=== PATIENT | male | born 1965 | race Hispanic/Latino ===

== ENCOUNTER 2017-03-12 16:01 | Emergency (ER) | payer MEDICAID ==
--- NOTE | 2017-03-12 16:14 | ED PDOC ---
HPI: Psych/Substance Abuse Time Seen by Provider: 03/12/17 16:13 Chief Complaint (Nursing): Psychiatric Evaluation Chief Complaint (Provider): etoh, crisis eval History Per: Patient, EMS Additional Complaint(s): 51 year old male presents to ED for crisis eval. Patient admits to having some domestic issues at home. He states he called ambulance today as he feels suicidal but does not have a plan. Patient also admits to drinking "A lot of alcohol today" but he denies any drug use. Patient offers no acute medical complaints. Past Medical History Reviewed: Historical Data, Nursing Documentation, Vital Signs Vital Signs: Last Vital Signs Temp 97.7 F 03/12/17 16:05 Pulse 93 H 03/12/17 16:05 Resp 20 03/12/17 16:05 BP 138/90 03/12/17 16:05 Pulse Ox 99 03/12/17 16:05 - Medical History PMH: Crohn's Disease Other PMH: "Adrenal problem" - Surgical History Surgical History: Appendectomy - Family History Family History: States: No Known Family Hx - Living Arrangements Living Arrangements: With Family - Social History Current smoker - smoking cessation education provided: Yes Alcohol: Social Drugs: Denies - Allergies Allergies/Adverse Reactions: Allergies Allergy/AdvReac Type Severity Reaction Status Date / Time No Known Allergies Allergy Verified 03/12/17 16:04 Review of Systems ROS Statement: Except As Marked, All Systems Reviewed And Found Negative Psych: Positive for: Suicidal ideation, Other (etoh) Physical Exam - Reviewed Nursing Documentation Reviewed: Yes Vital Signs Reviewed: Yes - Physical Exam Appears: Positive for: Well, Non-toxic, No Acute Distress Skin: Negative for: Rash Eye Exam: Positive for: Normal appearance Cardiovascular/Chest: Positive for: Regular Rate, Rhythm Respiratory: Positive for: Normal Breath Sounds Extremity: Positive for: Normal ROM Neurologic/Psych: Positive for: Alert, Other (intoxicated, answers some questions appropriately) - Laboratory Results Result Diagrams: 03/12/17 17:30 03/12/17 18:48 - ECG O2 Sat by Pulse Oximetry: 99 Pulse Ox Interpretation: Normal Medical Decision Making Medical Decision Makin51 year old intoxicated male with suicidal ideation Plan: 1:1 bedside observation Crisis consult CBC CMP BAL UDS UA BAL is 374 Upon review of patient's belongings, RN and internet technology manager noted several white powdered substances in various containers. Patient states they are medications that he snorts for an "adrenal disorder." He does not know the names of the meds. Police report filed and police came to ED. Disposition - Clinical Impression Clinical Impression: Alcohol intoxication, Suicidal ideation - Patient ED Disposition Is Patient to be Admitted: Transfer of Care - Disposition Disposition: Transfer of Care Disposition Time: 20:00 Condition: FAIR Forms: [employer] ([place]) Patient Signed Over To: Fili Morgan Handoff Comments: Case was signed out pending sobriety, crisis eval and final disposition
[2017-03-12 17:39] LABS: BASO # 0.1 K/uL (0.0-0.2); EOS # 0.1 K/uL (0.0-0.7); EOS % 1.1 % (0.0-4.0); HEMATOCRIT 39.3 % (35.0-51.0); LYMPH # 1.9 K/uL (1.0-4.3); LYMPH % 29.8 % (20.0-40.0); MEAN CELL VOLUME 88.7 fl (80.0-94.0); MEAN CORPUSCULAR HEMOGLOBIN 28.3 pg (27.0-31.0); MEAN CORPUSCULAR HGB CONC 31.9 g/dL (33.0-37.0); MEAN PLATELET VOLUME 6.5 fl (7.2-11.7); MONO # 0.5 K/uL (0.0-0.8); MONO % 7.1 % (0.0-10.0); NEUT # 3.9 K/uL (1.8-7.0); RED CELL DISTRIBUTION WIDTH 18.5 % (11.5-14.5); WHITE BLOOD COUNT 6.5 K/uL (4.8-10.8)
[2017-03-12 19:16] LABS: ALB/GLOB RATIO 1.5 (1.0-2.1); ALKALINE PHOSPHATASE 57 U/L (38-126); ALT/SGPT 52 U/L (21-72); AST/SGOT 65 U/L (17-59); BILIRUBIN,TOTAL 0.3 mg/dl (0.2-1.3); BLOOD UREA NITROGEN 11 mg/dl (9-20); CALCIUM 8.5 mg/dL (8.4-10.2); CARBON DIOXIDE 22 mmol/L (22-30); CHLORIDE 107 mmol/L (98-107); GFR AFRICAN-AMERICAN > 60; GLUCOSE,RANDOM 82 mg/dL (75-110); POTASSIUM 3.9 MMOL/L (3.6-5.0); SODIUM 146 mmol/l (132-148); TOTAL PROTEIN 7.3 G/DL (6.3-8.2)
[2017-03-12 19:23] LABS: RBC URINE 2 /hpf (0-3); URINE BILIRUBIN NEGATIVE (NEGATIVE); URINE BLOOD NEGATIVE (NEGATIVE); URINE COLOR YELLOW (YELLOW); URINE GLUCOSE (UA) NEG (Normal); URINE KETONE 20 mg/dL (NEGATIVE); URINE LEUKOCYTE ESTERASE NEG Leu/uL (Negative); URINE PROTEIN 100 mg/dL (NEGATIVE); URINE UROBILINOGEN 0.2-1.0 mg/dL (0.2-1.0); WBC URINE < 1 /hpf (0-5)
[2017-03-13] MEDS ORDERED: Alum-Mag Hydrox-Simethicone Susp (30 mL) PO ONE (00:16)
--- NOTE | 2017-03-13 02:47 | ED PDOC ---
- Laboratory Results Result Diagrams: 03/12/17 17:30 03/12/17 18:48 - ECG O2 Sat by Pulse Oximetry: 98 - Progress ED Course And Treament: SEEN BY CRISIS CLEARED FOR DISCHARGE DIAGNOSIS ALCOHOL INDUCED MOOD DISORDER Disposition - Clinical Impression Clinical Impression: Alcohol intoxication, Suicidal ideation, Alcohol-induced mood disorder - POA Present On Arrival: None - Disposition Disposition: Routine/Home Disposition Time: 02:46 Condition: FAIR Additional Instructions: PATIENT IS MEDICALLY AND PSYCHIATRICALLY CLEARED FOR INCARCERATION. Instructions: Mood Disorders (ED) Forms: [employer] ([place])
[2017-03-13 03:13] VITALS: BP 148/85; PULSE 98; RESP 18; TEMP 98.2; O2SAT 99
== END 2017-03-13 03:38 ==
LOC: H.ER 16:01
DX: F10.129 Alcohol abuse with intoxication, unspecified (principal); E27.9 Disorder of adrenal gland, unspecified; F17.200 Nicotine dependence, unspecified, uncomplicated; K50.90 Crohn's disease, unspecified, without complications; R45.851 Suicidal ideations

== ENCOUNTER 2017-04-28 05:08 | Emergency (ER) | payer MEDICAID ==
[2017-04-28] MEDS ORDERED: Albuterol-Ipratrop 3 mg / 0.5 (3 ml) UD INH STA (05:40)
[2017-04-28] MEDS ORDERED: Promethazine/Cod 6.25mg-10mg/5ml Syr UD PO STA (05:42)
[2017-04-28] MEDS ORDERED: Sodium Chloride 0.9% 1,000 ML IV STA (05:42)
--- NOTE | 2017-04-28 05:58 | ED PDOC ---
HPI: CCC, URI, Sore Throat Time Seen by Provider: 04/28/17 05:22 Chief Complaint (Nursing): Cough, Cold, Congestion Chief Complaint (Provider): Cough and Vomiting History Per: Patient History/Exam Limitations: no limitations Onset/Duration Of Symptoms: Days (1 week but got worse 5 hours ago) Current Symptoms Are (Timing): Still Present Additional Complaint(s): 51 y/o male with a history of Crohn's Disease presents to the ED complaining of coughing and vomiting, onset of 7 days. Patient reports that about a week ago he was admitted to a hospital in [place], where they tested for pneumonia and blood clots. His results came back negative for both, and he was discharged with a diagnosis of bronchitis 2 days ago. His symptoms of coughing and vomiting episodes arose again, and worsened shortly after being discharged prompting this visit to the ED. Patient reports of very little blood after coughing, chills, sweating, but denies any abdominal pain or diarrhea. Of note, patient is not currently on any type of medication. Past Medical History Reviewed: Historical Data, Nursing Documentation, Vital Signs Vital Signs: Last Vital Signs Temp 98.6 F 04/28/17 05:15 Pulse 120 H 04/28/17 05:15 Resp 19 04/28/17 05:15 BP 173/117 H 04/28/17 05:15 Pulse Ox 97 04/28/17 06:09 - Medical History PMH: Crohn's Disease Denies: Diabetes, Hepatitis, HIV, HTN, Seizures, Sexually Transmitted Disease - Surgical History Surgical History: Appendectomy, Cholecystectomy - Family History Family History: States: Unknown Family Hx - Social History Current smoker - smoking cessation education provided: Yes Alcohol: Social Drugs: Denies - Home Medications Home Medications: Ambulatory Orders Medication Instructions Recorded Famotidine [Pepcid AC] 10 mg PO PRN PRN 03/12/17 Galantamine [remINYL] 4 mg PO BID 03/12/17 Loperamide [Imodium] 2 mg PO PRN PRN 03/12/17 Memantine [Namenda] 10 mg PO BID 03/12/17 Albuterol HFA [Ventolin HFA 90 2 puff IH Q4 PRN #1 inh 04/28/17 mcg/actuation (8 g)] Azithromycin [Z-Bubba] 250 mg PO ASDIR #6 tab 04/28/17 Promethazine/Codeine 5 ml PO Q6 PRN #100 ml 04/28/17 [Phenergan/Codeine Oral Syrup] - Allergies Allergies/Adverse Reactions: Allergies Allergy/AdvReac Type Severity Reaction Status Date / Time morphine Allergy ITCHING Verified 04/28/17 05:21 Review of Systems ROS Statement: Except As Marked, All Systems Reviewed And Found Negative Constitutional: Positive for: Chills, Sweats Cardiovascular: Negative for: Chest Pain Respiratory: Positive for: Cough. Negative for: Shortness of Breath Gastrointestinal: Positive for: Vomiting. Negative for: Abdominal Pain, Diarrhea Physical Exam - Reviewed Nursing Documentation Reviewed: Yes Vital Signs Reviewed: Yes - Physical Exam Appears: Positive for: Non-toxic, No Acute Distress, Uncomfortable Head Exam: Positive for: ATRAUMATIC, NORMOCEPHALIC Skin: Positive for: Normal Color, Warm Eye Exam: Positive for: Normal appearance, EOMI, PERRL ENT: Positive for: Normal ENT Inspection Neck: Positive for: Normal, Painless ROM, Supple Cardiovascular/Chest: Positive for: Tachycardia Respiratory: Positive for: Normal Breath Sounds. Negative for: Respiratory Distress Gastrointestinal/Abdominal: Positive for: Normal Exam, Soft. Negative for: Tenderness Back: Positive for: Normal Inspection Extremity: Positive for: Normal ROM. Negative for: Pedal Edema, Deformity Neurologic/Psych: Positive for: Alert, Oriented. Negative for: Motor/Sensory Deficits - Laboratory Results Result Diagrams: 04/28/17 06:12 04/28/17 06:12 - ECG O2 Sat by Pulse Oximetry: 97 (RA) Pulse Ox Interpretation: Normal Medical Decision Making Medical Decision Making: Time: --05:40 Impression: --Cough and Vomiting Differential: --Acute Bronchitis vs. Pneumonia vs. ETOH Withdrawal Plan: --VBG Shock Panel --Alcohol Serum --Labs --Chest X-ray --Albuterol 3ml INH --IV Fluids --Zofran 4mg IV --Promethazine/Codeine 5ml PO --Blood Culture --IV Insertion Reassess -- Scribe Attestation: Documented by Savage Ramirez acting as a scribe for Pradeep Gould MD Disposition - Clinical Impression Clinical Impression: Acute bronchitis - Patient ED Disposition Is Patient to be Admitted: No Doctor Will See Patient In The: Office Counseled Patient/Family Regarding: Studies Performed, Diagnosis, Need For Followup - Disposition Referrals: [facility] [Outside] Disposition: Routine/Home Disposition Time: 06:59 Condition: GOOD Additional Instructions: Take your medications as instructed. Follow up with your PCP in 2-3 days. Return for worsening. Prescriptions: Albuterol HFA [Ventolin HFA 90 mcg/actuation (8 g)] 2 puff IH Q4 PRN #1 inh PRN Reason: Cough Azithromycin [Z-Bubba] 250 mg PO ASDIR #6 tab Promethazine/Codeine [Phenergan/Codeine Oral Syrup] 5 ml PO Q6 PRN #100 ml PRN Reason: Cough Instructions: Acute Bronchitis (ED)
[2017-04-28 06:14] LABS: BASO # 0.1 K/uL (0.0-0.2); BASO % 0.8 % (0.0-2.0); EOS # 0.1 K/uL (0.0-0.7); EOS % 0.7 % (0.0-4.0); HEMOGLOBIN 10.9 g/dL (12.0-18.0); LYMPH # 2.4 K/uL (1.0-4.3); LYMPH % 17.9 % (20.0-40.0); MEAN CORPUSCULAR HEMOGLOBIN 27.9 pg (27.0-31.0); MEAN CORPUSCULAR HGB CONC 32.9 g/dL (33.0-37.0); MEAN PLATELET VOLUME 7.2 fl (7.2-11.7); MONO # 1.4 K/uL (0.0-0.8); MONO % 10.6 % (0.0-10.0); NEUT # 9.2 K/uL (1.8-7.0); RBC 3.92 Mil/uL (4.40-5.90); RED CELL DISTRIBUTION WIDTH 16.8 % (11.5-14.5); WHITE BLOOD COUNT 13.2 K/uL (4.8-10.8)
[2017-04-28 06:16] LABS: VENOUS BLOOD GAS BASE EXCESS 1.7 mmol/L (0.0-2.0); VENOUS BLOOD GAS PCO2 38 mmHg (40-60); VENOUS BLOOD GAS PO2 49 mm/Hg (30-55); VENOUS BLOOD PH 7.44 (7.32-7.43)
[2017-04-28 06:33] LABS: ALB/GLOB RATIO 1.2 (1.0-2.1); ALT/SGPT 34 U/L (21-72); AST/SGOT 33 U/L (17-59); BLOOD UREA NITROGEN 10 mg/dl (9-20); CALCIUM 9.9 mg/dL (8.4-10.2); GFR AFRICAN-AMERICAN > 60; GFR NON-AFRICAN AMERICAN > 60
[2017-04-28 07:09] VITALS: BP 122/78; PULSE 106; RESP 22; TEMP 98; O2SAT 96
--- NOTE | 2017-04-28 13:51 | RAD ---
HISTORY: cough COMPARISON: No prior. TECHNIQUE: Chest PA and lateral FINDINGS: LUNGS: No active pulmonary disease. PLEURA: No significant pleural effusion identified. No pneumothorax apparent. CARDIOVASCULAR: Normal. OSSEOUS STRUCTURES: No significant abnormalities. VISUALIZED UPPER ABDOMEN: Normal. OTHER FINDINGS: None. IMPRESSION: No active disease.
== END 2017-04-28 07:49 | disposition home or self-care (01) ==
LOC: H.ER 05:08
DX: J20.9 Acute bronchitis, unspecified (principal); K50.90 Crohn's disease, unspecified, without complications
CPT/HCPCS: 71046; 80053; 80320; 82803; 85025; 87040; 94150; 94640; 96360; 99283; J2405; J7040